=== PATIENT | male | born 1945 | race Caucasian/White ===

== ENCOUNTER → 2017-08-26 | Outpatient (CLI) | payer BC, OTHER ==
[~2017-08-26] VITALS: Ht 177.8 cm; Wt 67.6 kg
[~2017-08-26] MED LIST: 8HR ARTHRITIS650 M1 PO; ADVIL,NUPRIN,M200 MG PO; ALEVE220 MG PO; BACITRACIN-POL3.5 GM LEFT EYE; CARDIZEM CD,CA240 MG PO; CLINDAMYCIN PHO60 GM TP; CLOPIDOGREL75 MG PO; COMPAZINE10 MG PO; CONSTULOSE10 GM/15 M PO; CORTIZONE-10 PL57 GM TP; DAILY VALUE1 EACH PO; ELIQUIS5 MG PO; FENTANYL1 EAC4 TD; HYDROCHLOROTHIA25 MG PO; LEVOCETIRIZINE D5 MG PO; LO-DOSE ASPIRIN81 M1 PO; LOSARTAN POTAS100 MG PO; MULTIVITAMIN1 EAC2 PO; NITROGLYCERIN0.4 MG SL; NITROSTAT0.4 MG SL; ONDANSETRON HCL8 MG PO; OXAYDO5 MG PO; OXYCODONE HCL5 MG PO; PANTOPRAZOLE SO40 MG PO; PLAVIX75 MG PO; PROAIR HFA8.5 GM IH; PROTONIX40 MG PO; SIMVASTATIN40 MG PO; SOTALOL AF120 MG PO; VITAMIN C1000 MG PO; magic mouthwash PO
== END | disposition home or self-care (01) ==
LOC: AMB 10:30
DX: R13.10 Dysphagia, unspecified (principal); K21.9 Gastro-esophageal reflux disease without esophagitis; K44.9 Diaphragmatic hernia without obstruction or gangrene; I25.10 Atherosclerotic heart disease of native coronary artery without angina pectoris; I10 Essential (primary) hypertension; E78.5 Hyperlipidemia, unspecified; G47.30 Sleep apnea, unspecified; Z72.0 Tobacco use; Z82.49 Family history of ischemic heart disease and other diseases of the circulatory system

== ENCOUNTER 2017-11-17 05:29 | Day surgery (SDC) | payer OTHER, BC ==
[~2017-11-17] VITALS: Ht 177.8 cm; Wt 66.9 kg
[2017-11-17 05:55] VITALS: BP 132/80
[2017-11-17] MEDS ORDERED: ROXICODONE5 MG PO (09:06)
[2017-11-17] MEDS ORDERED: COLACE100 MG PO (09:08)
[2017-11-17 10:31] VITALS: BP 156/76
[2017-11-17 11:30] VITALS: BP 153/79
== END 2017-11-17 11:55 | disposition home or self-care (01) ==
LOC: SDC 05:29
PROC: 0YU60JZ Supplement Left Inguinal Region with Synthetic Substitute, Open Approach (ICD-10-PCS; principal; 2017-11-17)
DX: K40.90 Unilateral inguinal hernia, without obstruction or gangrene, not specified as recurrent (principal); I48.91 Unspecified atrial fibrillation; I10 Essential (primary) hypertension; E78.5 Hyperlipidemia, unspecified; K70.0 Alcoholic fatty liver; F10.10 Alcohol abuse, uncomplicated; I25.2 Old myocardial infarction; J44.9 Chronic obstructive pulmonary disease, unspecified; Z79.01 Long term (current) use of anticoagulants; Z95.1 Presence of aortocoronary bypass graft; Z95.0 Presence of cardiac pacemaker; Z79.02 Long term (current) use of antithrombotics/antiplatelets; Z87.891 Personal history of nicotine dependence
CPT/HCPCS: 88302; 93005; C1781; J0131; J0330; J0690; J1100; J1170; J2310; J2405; J2710; J3010; J7643